=== PATIENT | male | born 1950 | race Hispanic/Latino ===

== ENCOUNTER → 2017-11-08 | Day surgery (SDC) | payer MEDICARE ==
[2017-11-07 14:00] LABS: BASOPHILS % 0.3 % (0.0-1.0); EOSINOPHILS # (AUTO) 0.2 (0.0-0.4); EOSINOPHILS % 1.7 % (0.0-6.0); HEMATOCRIT 46.5 % (38.2-49.6); HEMOGLOBIN 15.3 g/dL (14.0-18.0); LYMPHOCYTES # (AUTO) 3.8 (1.0-3.2); LYMPHOCYTES % 37.1 % (18.0-39.1); MEAN CORPUSCULAR HEMOGLOBIN 27.8 pg (28-32); MEAN CORPUSCULAR HGB CONC 32.9 g/dL (31-35); MEAN CORPUSCULAR VOLUME 84.4 fL (81-99); MONOCYTES # (AUTO) 0.8 (0.2-0.8); MONOCYTES % 7.3 % (4.4-11.3); NEUTROPHILS # (AUTO) 5.5 (2.1-6.9); NEUTROPHILS % 53.3 % (38.7-80.0); PLATELET COUNT 296 x10e3/uL (140-360); RED BLOOD COUNT 5.51 x10e6/uL (4.3-5.7); RED CELL DISTRIBUTION WIDTH 13.3 % (11.7-14.4)
--- NOTE | 2017-11-07 14:02 | Diagnostic Imaging Report ---
PROCEDURE: X-RAY CHEST, TWO VIEWS COMPARISON: None. INDICATIONS: PRE OPERATIVE CHEST X-RAY FOR KIDNEY STONES AND STENTS FINDINGS: Lungs are well-inflated. Minimal linear air space opacity in the lung bases compatible with subsegmental atelectasis. No pleural effusion or pneumothorax. Tortuous thoracic aorta with otherwise unremarkable cardiomediastinal contour. No acute osseous abnormality. Locking loop catheters projected over the upper abdomen on the lateral radiograph and may reflect internal ureteral stents. CONCLUSION: Subsegmental atelectasis in the lung bases. Otherwise no acute cardiopulmonary abnormality. Dictated by: Jacinto Noriega M.D. on 11/07/2017 at 14:08 Electronically approved by: Jacinto Noriega M.D. on 11/07/2017 at 14:08
[2017-11-07 14:15] LABS: ANION GAP 17.7 mmol/L (8-16); CREATININE, SERUM 1.43 mg/dL (0.72-1.25); POTASSIUM 4.7 mmol/L (3.5-5.1)
[~2017-11-08] MED LIST: BENZONATATE100 MG PO; CEFAZOLIN SOD 1 GM VIAL ONE; DEXAMETHASONE SOD PHOS INJ 4 MG/ML VIAL ONE; FENTANYL CITRATE/PF 100MCG/2 ML INJ ONE; FUROSEMIDE40 MG PO; IOPAMIDOL 300MG/ML 50ML INFUS..BTL IV ONE; LIDOCAINE HCL 2% LOCAL INJ 5 ML SDV VIAL INJ ONE; LISINOPRIL5 MG; METFORMIN HCL500 MG PO; MIDAZOLAM HCL 2 MG/2 ML VIAL ONE; ONDANSETRON HCL INJ 2 MG/ML VIAL ONE; PROPOFOL IV EMULSION 10 MG/ML 20 ML VIAL ONE; SEVOFLURANE INHAL SOLN 250 ML PEN BTL ONE; TAMSULOSIN HCL0.4 MG; VITAMIN D1000 UNI1 PO; ZYRTEC10 M3
--- NOTE | 2017-11-08 19:39 | Operative Report ---
DATE OF PROCEDURE: November 08, 2017 PREOPERATIVE DIAGNOSES: 1. Left nephrolithiasis. 2. Bilateral double J ureteral stent. 3. Right hydronephrosis. 4. Hematuria. OPERATION PERFORMED: 1. Extracorporeal shock wave lithotripsy of left 3 kidney stones. 2. Cystoscopy and removal of left double J stent. 3. Left retrograde pyelograms under fluoroscopic control. 4. Placement of double J stent, 6-Norwegian 24 cm long to the left side. 5. Removal of double J stent from the right side. 6. Retrograde pyelograms on the right side. 7. Ureteroscopy on the right side using a flexible ureteroscope. 8. Placement of double J stent 7-Norwegian 24 cm long to the right side. 9. Interpretation of x-ray. Radiologist not present. 10. Supervision of fluoroscopy. Radiologist not present. FOOT MITER OPERATOR: None. ANESTHESIA: General. CLINICAL INDICATION NOTE: This is a 67-year-old patient who has problems on each kidney. On the left kidney, there are several stones. There is a double J stent in place. On the right side, he has significant hydronephrosis as well as some dilation of the ureter down to the lower ureter. The patient was brought for lithotripsy of the kidney stones and further assessment of the right side as well as placement of stent to the left. Procedure was discussed with the patient. The potential benefits and complications discussed, explained and accepted. Patient became aware that he may require additional procedures. DESCRIPTION OF PROCEDURE AND FINDINGS: After proper level of anesthesia was achieved, the patient was placed in supine position. The three areas of stone were identified and treated with combined 3500 shocks. All areas of stones were very clearly disintegrated. Following this the patient was placed in lithotomy position, prepped and draped in the usual sterile fashion. Urethra inspected and is unremarkable except for minimal narrowing of the meatus. Bladder outlet is obstructed by small prostate. Bladder is unremarkable. Double J stents are present on both sides and edema of both ureteral orifices present from the irritation by the stent. The left stent was then pulled and open-end catheter was inserted. Retrograde pyelograms demonstrating some dilation of the upper collecting system, mostly the upper pole. A guidewire was then kept in place, and a 6-Norwegian 24 cm long double J stent was properly positioned on the left side. Following this the right double J stent was removed. Open-end catheter was inserted. Retrograde pyelogram demonstrating a large hydronephrosis on the right side with some dilation of the upper ureter. Guidewire was kept in place and a flexible ureteroscopy was done. No tumor or foreign bodies were identified. Therefore, it is elected to reposition the double J stent. Guidewire was kept in place and a 7-Norwegian 24 cm long double J stent was properly positioned on the right side. Interpretation of x-ray was done by me. Radiologist not present. Supervision of fluoroscopy was done by me. Radiologist not present. Patient tolerated the procedure well. Treatment of each side. No connection to the contralateral side. Patient was transferred in satisfactory condition to recovery room. He will be followed as outpatient. Job#: [id number] ABNER
== END | disposition home or self-care (01) ==
LOC: OR 05:49
PROVIDERS: ATTEND Urology
DX: N20.0 Calculus of kidney (principal); N13.30 Unspecified hydronephrosis; Z46.6 Encounter for fitting and adjustment of urinary device; R05 Cough; I10 Essential (primary) hypertension; E11.9 Type 2 diabetes mellitus without complications; Z01.810 Encounter for preprocedural cardiovascular examination; Z01.812 Encounter for preprocedural laboratory examination; Z01.818 Encounter for other preprocedural examination; Z79.84 Long term (current) use of oral hypoglycemic drugs
CPT/HCPCS: 36415 ×2; 50590; 52332; 52351; 71046; 80048; 82948; 85025; 93005; J0690; J1100; J2001; J2250; J2405; Q9967

== ENCOUNTER → 2017-11-24 | Outpatient (CLI) | payer MEDICARE ==
[~2017-11-24] MED LIST changes: -CEFAZOLIN SOD 1 GM VIAL ONE; -DEXAMETHASONE SOD PHOS INJ 4 MG/ML VIAL ONE; -FENTANYL CITRATE/PF 100MCG/2 ML INJ ONE; -IOPAMIDOL 300MG/ML 50ML INFUS..BTL IV ONE; -LIDOCAINE HCL 2% LOCAL INJ 5 ML SDV VIAL INJ ONE; -MIDAZOLAM HCL 2 MG/2 ML VIAL ONE; -ONDANSETRON HCL INJ 2 MG/ML VIAL ONE; -PROPOFOL IV EMULSION 10 MG/ML 20 ML VIAL ONE; -SEVOFLURANE INHAL SOLN 250 ML PEN BTL ONE
--- NOTE | 2017-11-24 12:14 | Diagnostic Imaging Report ---
PROCEDURE:X-RAY ABDOMEN - KUB COMPARISON:None. INDICATIONS:CALCULUS OF KIDNEY, BILATERAL STENTS FINDINGS:There are bilateral double-J ureteral stents in appropriate location. There are no dilated loops of bowel to suggest obstruction. There are no masses. Multiple small calcified stones are within the lower pole calyces on the left side. The there is also a single stone adjacent to the left ureteral stent at the L3 level. There is no evidence of free air. No acute osseous abnormalities are present. CONCLUSION: 1. No acute abdominal abnormality. 2. Multiple lower pole renal stones. Kendell Vazquez D.O. Dictated by: Kendell Vazquez D.O. on 11/24/2017 at 12:19 Electronically approved by: Kendell Vazquez D.O. on 11/24/2017 at 12:19
== END ==
LOC: RAD 09:54
PROVIDERS: ATTEND Urology
DX: N20.0 Calculus of kidney (principal)
CPT/HCPCS: 74018

== ENCOUNTER → 2017-12-19 | Day surgery (SDC) | payer MEDICARE ==
[2017-12-18 09:11] LABS: BASOPHILS % 0.3 % (0.0-1.0); EOSINOPHILS # (AUTO) 0.1 (0.0-0.4); EOSINOPHILS % 1.9 % (0.0-6.0); HEMATOCRIT 46.7 % (38.2-49.6); HEMOGLOBIN 15.4 g/dL (14.0-18.0); LYMPHOCYTES # (AUTO) 2.8 (1.0-3.2); MEAN CORPUSCULAR HEMOGLOBIN 28.1 pg (28-32); MEAN CORPUSCULAR VOLUME 85.1 fL (81-99); MONOCYTES # (AUTO) 0.6 (0.2-0.8); MONOCYTES % 7.5 % (4.4-11.3); NEUTROPHILS # (AUTO) 3.8 (2.1-6.9); PLATELET COUNT 323 x10e3/uL (140-360); RED BLOOD COUNT 5.49 x10e6/uL (4.3-5.7); RED CELL DISTRIBUTION WIDTH 13.5 % (11.7-14.4)
[2017-12-18 09:29] LABS: ANION GAP 13.2 mmol/L (8-16); CALCIUM 10.6 mg/dL (8.4-10.2); CREATININE, SERUM 1.25 mg/dL (0.72-1.25); POTASSIUM 4.2 mmol/L (3.5-5.1)
[~2017-12-19] MED LIST changes: +CEFAZOLIN SOD 1 GM VIAL ONE; +DEXAMETHASONE SOD PHOS INJ 4 MG/ML VIAL ONE; +FENTANYL CITRATE/PF 100MCG/2 ML INJ ONE; +IOPAMIDOL 300MG/ML 50ML INFUS..BTL IV ONE; +LIDOCAINE HCL 2% LOCAL INJ 5 ML SDV VIAL INJ ONE; +MIDAZOLAM HCL 2 MG/2 ML VIAL ONE; +ONDANSETRON HCL INJ 2 MG/ML VIAL ONE; +PROPOFOL IV EMULSION 10 MG/ML 20 ML VIAL ONE; +SEVOFLURANE INHAL SOLN 250 ML PEN BTL ONE
[2017-12-19 11:45] VITALS: BP 137/83
--- NOTE | 2017-12-19 20:08 | Operative Report ---
DATE OF PROCEDURE: December 19, 2017 SERVICE: Urology. PREOPERATIVE DIAGNOSES 1. History of nephrolithiasis. 2. Bilateral double J stents. 3. Hydronephrosis. 4. Microhematuria. 5. 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 POSTOPERATIVE DIAGNOSES: OPERATIONS PERFORMED 1. Cystoscopy and right removal of double J stent. Not related to the contralateral side. 2. Right retrograde pyelograms under fluoroscopic control. 3. Right ureteroscopy. 4. Placement of double J stent 7-Thai 24 cm long to the right side. 5. Removal of double J stent from the left side. 6. Left retrograde pyelograms under fluoroscopic control. 7. Left ureteroscopy. 8. Interpretation of x-ray. Radiologist not present. 9. Supervision of fluoroscopy. Radiologist not present. SEASONING MIXER: None. ANESTHESIA: General. CLINICAL INDICATION NOTE: This is a 67-year-old patient having passed nephrolithiasis on the left side. He has bilateral double J stents. Has hydronephrosis on the right side, probably UPJ obstruction. He was brought for reassessment of both sides. Procedures were discussed with the patient and he understands the benefits and complication potential. DESCRIPTION OF PROCEDURE AND FINDINGS: After proper level of anesthesia was achieved, the patient was placed in lithotomy position, prepped and draped in usual sterile fashion. The urethra inspected is unremarkable. The bladder outlet is minimally obstructed by large prostate. The bladder is somewhat trabeculated. Double J stent present in each ureteral orifice. The right double J stent was removed. Open-ended catheter was kept in place. Retrograde pyelograms suggest dilation of the upper collecting system with narrowing of the UPJ junction. The wire was kept in place. Flexible ureteroscopy was done. Narrow UPJ was noticed. No stones were seen. It was elected to place a double J stent again. A wire was kept in place and a 7-Thai 24 cm long double J stent was properly positioned on the right side. Following this, the left double J stent was removed. Open-ended catheter was kept in place and retrograde pyelogram was done. There was minimal dilation of the upper collecting system. The upper nataly was quite prominent. It was suspected stone was seen. Wire was kept in place and a flexible ureteroscopy was done. No stones were identified. It was elected not to reposition the double J stent on this side. The bladder was then irrigated. The scope was removed. The patient was transferred in satisfactory condition to the recovery room. Will follow him as outpatient. Postop instructions given. Job#: [id number] GE
== END | disposition home or self-care (01) ==
LOC: OR 08:14
PROVIDERS: ATTEND Urology
DX: N13.30 Unspecified hydronephrosis (principal); Z46.6 Encounter for fitting and adjustment of urinary device; N13.5 Crossing vessel and stricture of ureter without hydronephrosis; N42.89 Other specified disorders of prostate; N13.8 Other obstructive and reflux uropathy; N39.0 Urinary tract infection, site not specified; Z87.442 Personal history of urinary calculi; I10 Essential (primary) hypertension; E78.5 Hyperlipidemia, unspecified; E11.9 Type 2 diabetes mellitus without complications; Z01.812 Encounter for preprocedural laboratory examination; Z79.84 Long term (current) use of oral hypoglycemic drugs
CPT/HCPCS: 36415 ×2; 52332; 52351; 74420; 80048; 82948; 85025; C2617; J0690; J1100; J2001; J2250; J2405; Q9967

== ENCOUNTER → 2018-02-20 | Day surgery (SDC) | payer MEDICARE ==
[2018-02-19 08:54] LABS: BASOPHILS % 0.4 % (0.0-1.0); EOSINOPHILS # (AUTO) 0.2 (0.0-0.4); EOSINOPHILS % 1.8 % (0.0-6.0); HEMATOCRIT 45.8 % (38.2-49.6); HEMOGLOBIN 14.7 g/dL (14.0-18.0); LYMPHOCYTES # (AUTO) 3.4 (1.0-3.2); LYMPHOCYTES % 39.8 % (18.0-39.1); MEAN CORPUSCULAR HEMOGLOBIN 27.8 pg (28-32); MEAN CORPUSCULAR HGB CONC 32.1 g/dL (31-35); MEAN CORPUSCULAR VOLUME 86.6 fL (81-99); MONOCYTES # (AUTO) 0.6 (0.2-0.8); MONOCYTES % 7.3 % (4.4-11.3); NEUTROPHILS # (AUTO) 4.3 (2.1-6.9); NEUTROPHILS % 50.5 % (38.7-80.0); PLATELET COUNT 324 x10e3/uL (140-360); RED BLOOD COUNT 5.29 x10e6/uL (4.3-5.7)
[2018-02-19 09:19] LABS: ANION GAP 12.4 mmol/L (8-16); BLOOD UREA NITROGEN 14 mg/dL (7-26); BUN/CREATININE RATIO 12 (6-25); CALCIUM 10.6 mg/dL (8.4-10.2); CARBON DIOXIDE 23 mmol/L (22-29); CHLORIDE 106 mmol/L (98-107); CREATININE, SERUM 1.16 mg/dL (0.72-1.25); EST GLOMERULAR FILTRATION RATE > 60 ML/MIN (60-); GLUCOSE 142 mg/dL (74-118); POTASSIUM 4.4 mmol/L (3.5-5.1); SODIUM 137 mmol/L (136-145)
[~2018-02-20] MED LIST changes: -IOPAMIDOL 300MG/ML 50ML INFUS..BTL IV ONE; +IOPAMIDOL 610MG/1ML 300 MG/ML VIAL IV ONE; -LISINOPRIL5 MG; +LISINOPRIL5 MG PO; -MIDAZOLAM HCL 2 MG/2 ML VIAL ONE
[2018-02-20 10:25] VITALS: BP 139/83
--- NOTE | 2018-02-20 15:52 | Operative Report ---
DATE OF PROCEDURE: February 20, 2018 PREOPERATIVE DIAGNOSES: 1. History of right ureteropelvic junction obstruction. 2. Left nephrolithiasis. 3. Dilated left calyx in the upper pole. 4. Stents on the right side. POSTOPERATIVE DIAGNOSES: 1. History of right ureteropelvic junction obstruction. 2. Left nephrolithiasis. 3. Dilated left calyx in the upper pole. 4. Stents on the right side. OPERATIONS PERFORMED: 1. Removal of double J stent from the right side. 2. Right retrograde pyelograms under fluoroscopic control. 3. Right ureteroscopy. 4. Placement of double J stent, 7 Cypriot 24 cm long to the right side. 5. Left retrograde pyelograms under fluoroscopic control. 6. Left ureteroscopy. Removal of small stones from the ureter, distal left. 7. Interpretation of x-ray. Radiologist not present. 8. Supervision of fluoroscopy. Radiologist not present. REMOTE SENSING PROGRAM MANAGER: None. ANESTHESIA: General. CLINICAL INDICATION NOTE: This is a 67-year-old patient with a history of left nephrolithiasis, had a question of right UPJ obstruction. He has a stent on the right side, no stent on the left. He was brought for further assessment of both sides. Procedure was discussed with the patient ahead of time with the help of translation. DESCRIPTION OF PROCEDURE AND FINDINGS: After a proper level of anesthesia was achieved, the patient was placed in lithotomy position, prepped and draped in sterile fashion. Urethra inspected, was unremarkable though was minimally obstructed. Bladder is quite trabeculated. There were no tumors or foreign bodies identified in . in the bladder. A double J stent was protruding through the right ureteral orifice. The right double J stent was pulled out to the urethral meatus. A wire was passed through it, and open-end catheter was inserted. The retrograde pyelograms were done under fluoroscopic control. It did demonstrate an enlarged pelvis and obstruction at the UPJ junction. At that point, ureteroscopy was done, and a narrow segment at the UPJ junction was seen. It was elected to see if there would be any drainage; and, therefore, the open-end catheter and the ureteroscope were removed. Following this, left retrograde pyelograms were done under fluoroscopic control. There was some dilation of the upper nataly. However, it did drain on the left side. A ureteroscopy done. A few small calcifications were passed into the bladder. They were too small to send for analysis, and we do have the previous analysis. It was elected not to leave a double J stent. There was no obstruction. At that point, we reassessed the right side, and the UPJ kept being blocked and there was no drainage of the pelvis; and, therefore, a double J stent, 7 Cypriot 24 cm long, was properly positioned on the right side. Patient's family were advised about the findings and he may require correction. Several options were given and will discuss further in the office. Job#: [id number] EV
== END | disposition home or self-care (01) ==
LOC: OR 06:54
PROVIDERS: ATTEND Urology
DX: N20.0 Calculus of kidney (principal); Z46.6 Encounter for fitting and adjustment of urinary device; N32.89 Other specified disorders of bladder; N13.5 Crossing vessel and stricture of ureter without hydronephrosis; Z01.812 Encounter for preprocedural laboratory examination; I10 Essential (primary) hypertension; E11.9 Type 2 diabetes mellitus without complications; Z79.84 Long term (current) use of oral hypoglycemic drugs
CPT/HCPCS: 36415 ×2; 52332; 52351; 74420; 80048; 82948; 85025; C2617; J0690; J1100; J2001; J2405; J2704; Q9967

== ENCOUNTER → 2018-05-10 | Day surgery (SDC) | payer MEDICARE ==
[2018-05-08 09:33] LABS: BASOPHILS % 0.5 % (0.0-1.0); EOSINOPHILS # (AUTO) 0.4 (0.0-0.4); EOSINOPHILS % 4.3 % (0.0-6.0); HEMATOCRIT 46.6 % (38.2-49.6); LYMPHOCYTES % 34.7 % (18.0-39.1); MEAN CORPUSCULAR HEMOGLOBIN 27.4 pg (28-32); MEAN CORPUSCULAR HGB CONC 32.2 g/dL (31-35); MEAN CORPUSCULAR VOLUME 85.2 fL (81-99); MONOCYTES # (AUTO) 0.6 (0.2-0.8); NEUTROPHILS # (AUTO) 4.5 (2.1-6.9); NEUTROPHILS % 53.1 % (38.7-80.0); PLATELET COUNT 366 x10e3/uL (140-360); RED BLOOD COUNT 5.47 x10e6/uL (4.3-5.7); RED CELL DISTRIBUTION WIDTH 13.1 % (11.7-14.4)
[2018-05-08 10:19] LABS: ANION GAP 14.1 mmol/L (8-16); BLOOD UREA NITROGEN 13 mg/dL (7-26); BUN/CREATININE RATIO 11 (6-25); CALCIUM 10.1 mg/dL (8.4-10.2); CARBON DIOXIDE 22 mmol/L (22-29); CHLORIDE 105 mmol/L (98-107); CREATININE, SERUM 1.15 mg/dL (0.72-1.25); EST GLOMERULAR FILTRATION RATE > 60 ML/MIN (60-); GLUCOSE 157 mg/dL (74-118); POTASSIUM 4.1 mmol/L (3.5-5.1); SODIUM 137 mmol/L (136-145)
[~2018-05-10] MED LIST changes: -CEFAZOLIN SOD 1 GM VIAL ONE; +CEFAZOLIN SOD 2 GM/D5W 50ML 50 ML IV ONE; +DEXAMETHASONE SOD PHOS INJ 4 MG/ML VIAL IV ONE; -DEXAMETHASONE SOD PHOS INJ 4 MG/ML VIAL ONE; +MIDAZOLAM HCL 2 MG/2 ML VIAL ONE; -ONDANSETRON HCL INJ 2 MG/ML VIAL ONE; +ONDANSETRON HCL INJ 2MG/ML 2ML 2 MG/ML VIAL IV ONE; +PROPOFOL IV EMULSION 10 MG/ML 20 ML VIAL IV ONE; -PROPOFOL IV EMULSION 10 MG/ML 20 ML VIAL ONE; +SEVOFLURANE INHAL SOLN 250 ML PEN BTL INH ONE; -SEVOFLURANE INHAL SOLN 250 ML PEN BTL ONE; -TAMSULOSIN HCL0.4 MG; +TAMSULOSIN HCL0.4 MG PO; +VITAMIN B-1250 MCG PEG
--- NOTE | 2018-05-10 07:10 | NUR ---
SPIRITUAL CARE - Pre-Surgery Assessment: Pt in bed. Pt's at bedside. Pt reported supportive attention from family and friends. Intervention: I provided pastoral presence, hospitality, and sympathetic listening. I acquainted pt with availability of certified registered dental assistant while hospitalized. Outcome: Pt expressed appreciation for visit. No need for follow up indicated at this time. DEVONTE Duranlain Spiritual Care Department O: [phone] Pager: [phone] ([phone] number calling from)
[2018-05-10 09:55] VITALS: BP 150/96
--- NOTE | 2018-05-10 15:06 | Operative Report ---
DATE OF PROCEDURE: May 10, 2018 PREOPERATIVE DIAGNOSES 1. History of nephrolithiasis on the left side. 2. Right ureteropelvic junction obstruction. 3. Presence of double J-stent on the right side. 4. Microhematuria. POSTOPERATIVE DIAGNOSES 1. History of nephrolithiasis on the left side. 2. Right ureteropelvic junction obstruction. 3. Presence of double J-stent on the right side. 4. Microhematuria. OPERATIONS PERFORMED 1. Cystoscopy and left retrograde pyelograms under fluoroscopic control. This is done with no connection to the contralateral side. 2. Removal of double J-stent from the right side. 3. Right retrograde pyelograms under fluoroscopic control. 4. Right ureteroscopy. 5. Endopyelotomy using a 200 laser fiber incising laterally. 6. Placement of double J-stent, special stent, endopyelotomy stent, 24 cm long. ADULT EDUCATION INSTRUCTOR: None. ANESTHESIA: General. CLINICAL INDICATION NOTE: This is a 67-year-old patient who has a UPJ obstruction on the right side and has a stent in place. The various options of treating were discussed with the patient and the family, and they elected to have a minimally invasive endopyelotomy. Patient was treated in the past for left nephrolithiasis as well and this will be reassessed. Patient is aware that he will require a double J-stent for a time. DESCRIPTION OF PROCEDURE AND FINDINGS: After proper level of anesthesia was achieved, the patient was placed in the lithotomy position and prepped and draped in the usual sterile fashion. Urethra inspected and is unremarkable. Bladder outlet is minimally obstructed by large prostate. Bladder is somewhat trabeculated. Double J-stent is protruding from the right ureteral orifice. Open-end catheter was inserted to the left side and retrograde pyelograms demonstrating a normal system on the left side. Following this, the right double J-stent was removed. Open-end catheter was inserted. Retrograde pyelograms again verifying the UPJ and the hydro. A wire was then advanced up into the kidney. A 2nd wire as a safety wire was placed. Following this, one of the wires was used to guide the ureteroscope up into the renal pelvis. Wire was removed. A 200 fiber Holmium laser was inserted. An incision of the UPJ was done laterally. It just opened nicely. Following this, the scope was removed. An endopyelotomy stent, 24 cm long, was properly positioned. This was verified by endoscopy, as well as x-ray. Following this, the bladder was irrigated. The scope was removed. Patient tolerated the procedure well, and was transferred in satisfactory condition to the recovery room. Postop orders and instructions given, as well as followup. Patient advised that if there is any acute problem to come to the ER. Job#: [id number] MARYAM
== END | disposition home or self-care (01) ==
LOC: OR 06:11
PROVIDERS: ATTEND Urology
DX: N13.5 Crossing vessel and stricture of ureter without hydronephrosis (principal); Z46.6 Encounter for fitting and adjustment of urinary device; Z87.442 Personal history of urinary calculi; I10 Essential (primary) hypertension; E11.9 Type 2 diabetes mellitus without complications; Z01.810 Encounter for preprocedural cardiovascular examination; Z01.812 Encounter for preprocedural laboratory examination; Z79.84 Long term (current) use of oral hypoglycemic drugs
CPT/HCPCS: 36415 ×2; 52342; 74420; 80048; 82948; 85025; 93005; J0690; J1100; J2001; J2250; J2405; J2704; Q9967

== ENCOUNTER → 2018-06-21 | Day surgery (SDC) | payer MEDICARE ==
[2018-06-20 11:36] LABS: BASOPHILS % 0.4 % (0.0-1.0); EOSINOPHILS # (AUTO) 0.1 (0.0-0.4); EOSINOPHILS % 1.8 % (0.0-6.0); HEMATOCRIT 49.4 % (38.2-49.6); LYMPHOCYTES # (AUTO) 2.8 (1.0-3.2); MEAN CORPUSCULAR HEMOGLOBIN 26.9 pg (28-32); MEAN CORPUSCULAR HGB CONC 32.4 g/dL (31-35); MEAN CORPUSCULAR VOLUME 83.2 fL (81-99); MONOCYTES # (AUTO) 0.5 (0.2-0.8); MONOCYTES % 6.1 % (4.4-11.3); NEUTROPHILS # (AUTO) 4.3 (2.1-6.9); NEUTROPHILS % 55.3 % (38.7-80.0); PLATELET COUNT 325 x10e3/uL (140-360); RED BLOOD COUNT 5.94 x10e6/uL (4.3-5.7); RED CELL DISTRIBUTION WIDTH 13.8 % (11.7-14.4)
[2018-06-20 11:54] LABS: ANION GAP 12.1 mmol/L (8-16); BLOOD UREA NITROGEN 14 mg/dL (7-26); BUN/CREATININE RATIO 13 (6-25); CARBON DIOXIDE 21 mmol/L (22-29); CHLORIDE 104 mmol/L (98-107); CREATININE, SERUM 1.04 mg/dL (0.72-1.25); EST GLOMERULAR FILTRATION RATE > 60 ML/MIN (60-); GLUCOSE 134 mg/dL (74-118); POTASSIUM 4.1 mmol/L (3.5-5.1); SODIUM 133 mmol/L (136-145)
[~2018-06-21] MED LIST changes: +CEFAZOLIN SOD 1 GM/NS 50ML 50 ML IV ONE; -CEFAZOLIN SOD 2 GM/D5W 50ML 50 ML IV ONE; -DEXAMETHASONE SOD PHOS INJ 4 MG/ML VIAL IV ONE; -ONDANSETRON HCL INJ 2MG/ML 2ML 2 MG/ML VIAL IV ONE; -PROPOFOL IV EMULSION 10 MG/ML 20 ML VIAL IV ONE; +PROPOFOL IV EMULSION 10 MG/ML 20 ML VIAL ONE; -SEVOFLURANE INHAL SOLN 250 ML PEN BTL INH ONE; +SEVOFLURANE INHAL SOLN 250 ML PEN BTL ONE
[2018-06-21 11:45] VITALS: BP 143/83
--- NOTE | 2018-06-22 01:42 | Operative Report ---
DATE OF PROCEDURE: 06/21/2018 SURGEON: Devonte Ayon MD SERVICE: Urology. PREOPERATIVE DIAGNOSES: 1. History of right ureteropelvic junction obstruction. 2. Presence of endopyelotomy stent. 3. Microhematuria. 4. Caliceal dilation of the upper nataly on the left kidney. POSTOPERATIVE DIAGNOSES: 1. History of right ureteropelvic junction obstruction. 2. Presence of endopyelotomy stent. 3. Microhematuria. 4. Caliceal dilation of the upper nataly on the left kidney. OPERATION PERFORMED: 1. Cystoscopy and left retrograde pyelogram under fluoroscopic control. This is done as part of the evaluation of the caliceal dilation on the left side. Patient has possible stones. 2. Removal of double-J stent from the right side. 3. Right retrograde pyelogram under fluoroscopic control. 4. Right ureteroscopy. 5. Interpretation of x-ray, radiologist not present. 6. Supervision of fluoroscopy, radiologist not present. ABRASIVE SAWYER: None. ANESTHESIA: General. CLINICAL INDICATION NOTE: This is a 68-year-old patient, had dilation of the upper nataly on the left side, history of nephrolithiasis, and UPJ on the right side that was treated with endopyelotomy. He does have an endopyelotomy stent in place. The patient was brought for reassessment on both sides. Procedures were discussed with the patient ahead of time, explained potential benefit and complication discussed, explained, accepted. DESCRIPTION OF PROCEDURE AND FINDINGS: After appropriate level of anesthesia was achieved, the patient was placed in lithotomy position, prepped and draped in the usual sterile fashion. The urethra was inspected and appeared to be unremarkable at the orifice. Obstructed by enlarged prostate. Bladder is trabeculated. Double-J stent was protruding from the right ureteral orifice. Open-ended catheter was inserted to the left side and retrograde pyelogram demonstrated no obstruction of the ureter, however, there was significant dilation of the upper nataly on the left side. No intrinsic lesions were identified. Following this, the double-J stent was removed from the right side with retrograde pyelogram demonstrating some dilation of the upper collecting system. A wire was kept in place and a flexible ureteroscopy was done. No intrinsic lesions were identified. The UPJ on the right side was patent now. Elected not to leave any double J stent. Scope was removed. The patient had been transferred in satisfactory condition to recovery room and will be followed as an outpatient. MD BLU Chance/DARRELL /[id number]
== END | disposition home or self-care (01) ==
LOC: OR 07:21
PROVIDERS: ATTEND Urology
DX: N13.30 Unspecified hydronephrosis (principal); N20.0 Calculus of kidney; Z46.6 Encounter for fitting and adjustment of urinary device; N40.0 Benign prostatic hyperplasia without lower urinary tract symptoms; N32.89 Other specified disorders of bladder; N39.0 Urinary tract infection, site not specified; E11.9 Type 2 diabetes mellitus without complications; I10 Essential (primary) hypertension; F41.9 Anxiety disorder, unspecified; Z01.810 Encounter for preprocedural cardiovascular examination; Z01.812 Encounter for preprocedural laboratory examination; Z79.84 Long term (current) use of oral hypoglycemic drugs
CPT/HCPCS: 36415 ×2; 52351; 74420; 80048; 82948; 85025; 93005; C1758; J0690; J2001; J2250; J2704; Q9967

== ENCOUNTER → 2018-10-22 | Outpatient (CLI) | payer MEDICARE ==
[~2018-10-22] MED LIST changes: -CEFAZOLIN SOD 1 GM/NS 50ML 50 ML IV ONE; -FENTANYL CITRATE/PF 100MCG/2 ML INJ ONE; +FUROSEMIDE INJ 10 MG/ML 4 ML VIAL ONE; -IOPAMIDOL 610MG/1ML 300 MG/ML VIAL IV ONE; -LIDOCAINE HCL 2% LOCAL INJ 5 ML SDV VIAL INJ ONE; -MIDAZOLAM HCL 2 MG/2 ML VIAL ONE; -PROPOFOL IV EMULSION 10 MG/ML 20 ML VIAL ONE; -SEVOFLURANE INHAL SOLN 250 ML PEN BTL ONE
--- NOTE | 2018-10-22 14:55 | Diagnostic Imaging Report ---
Renal Scan with Lasix [place]out Clinical information: Hydronephrosis; renal calculus Technique: Following intravenous administration of 10 mCi of Tc-99m MAG3, dynamic images of the kidneys in the posterior projection were obtained through 40 minutes. Lasix 40 mg was administered intravenously at 10 minutes post injection of the tracer. Report: Left kidney: Perfusion of the left kidney is prompt. The kidney has a reniform shape but appears slightly decreased in size.. Extraction of tracer from the blood pool is mildly decreased. Clearance of tracer from the renal parenchyma begins promptly but is not complete by the end of the study. The pelvicalyceal system is not dilated. Physiologic pooling of tracer is seen within the pelvicalyceal system. Drainage of tracer from the pelvicalyceal system is adequate prior to administration of Lasix. No significant stasis of tracer is seen within the left ureter. Right kidney: Perfusion to the right kidney is prompt. The right kidney has a distorted reniform shape with narrowing of the lower pole. The kidney appears decreased in size. Extraction of tracer from the blood pool by the renal parenchyma is mildly decreased. Clearance of tracer from the renal parenchyma begins promptly but is not complete by the end of the study. The pelvicalyceal system is not dilated. Physiologic pooling of tracer is seen within the pelvicalyceal system. Drainage of tracer from the pelvicalyceal system is adequate prior to administration of Lasix. No significant stasis of tracer is seen within the right ureter. Differential renal function: The left kidney contributes 49% of total renal function and the right kidney contributes 51% (normal 43-57%). Impression: 1. Scan evidence of medical renal disease in the left kidney. No hydronephrosis is present. No physiologically significant obstruction of the renal collecting system is present. 2. Scan evidence of medical renal disease in the right kidney and scarring in the lower pole. No hydronephrosis is present. No physiologically significant obstruction of the renal collecting system is present. 3. The differential renal function is preserved. Signed by: Dr. Renée Douglass M.D. on 10/22/2018 2:52 PM
== END ==
LOC: NM 08:52
PROVIDERS: ATTEND Urology
DX: N13.30 Unspecified hydronephrosis (principal); N20.0 Calculus of kidney; R31.21 Asymptomatic microscopic hematuria
CPT/HCPCS: 78708; A9562; J1940